=== PATIENT | female | born 1960 | race African-American/Black ===

== ENCOUNTER 2018-11-21 12:24 | Emergency (ER) | payer OTHER, SELFPAY ==
[2018-11-21] MEDS ORDERED: Acetaminophen 500 MG TAB ONE (12:47)
== END 2018-11-21 13:05 | disposition home or self-care (01) ==
LOC: BURERS 12:24
DX: K02.9 Dental caries, unspecified (principal); I10 Essential (primary) hypertension; F32.9 Major depressive disorder, single episode, unspecified; F17.220 Nicotine dependence, chewing tobacco, uncomplicated
CPT/HCPCS: 99282

== ENCOUNTER 2018-12-22 10:59 | Outpatient (CLI) | payer OTHER ==
--- NOTE | 2018-12-22 20:49 | RAD ---
LUMBAR SPINE THREE VIEWS: 12/22/18 No fracture, dislocation, or disc space narrowing was seen. Very minimal anterior osteophytes are see n around L3-L4. Minimal anterolisthesis of L4 on L% is probably secondary to mild facet arthritis. Ca lcification is noted in the aorta. The SI joints are symmetrical. IMPRESSION: Minor arthritic changes but no significant findings otherwise. POS: HOME
== END 2018-12-22 11:00 | disposition home or self-care (01) ==
LOC: BURRAD 10:59
PROVIDERS: ATTEND Nurse Practitioner Family
DX: M47.26 Other spondylosis with radiculopathy, lumbar region (principal)
CPT/HCPCS: 72100

== ENCOUNTER 2020-03-08 10:09 | Emergency (ER) | payer OTHER ==
[2020-03-08] MEDS ORDERED: Ketorolac Tromethamine 30 MG/ML VIAL ONE (10:50)
[2020-03-08] MEDS ORDERED: Sterile Water 10 ML ONE (10:50)
[2020-03-08] MEDS ORDERED: cefTRIAXone\\ROCEPHIN 1 GM VIAL ONE (10:50)
== END 2020-03-08 11:15 | disposition home or self-care (01) ==
LOC: BURERS 10:09
DX: K02.9 Dental caries, unspecified (principal); I10 Essential (primary) hypertension; E78.00 Pure hypercholesterolemia, unspecified; E10.9 Type 1 diabetes mellitus without complications; F17.220 Nicotine dependence, chewing tobacco, uncomplicated; Z79.899 Other long term (current) drug therapy
CPT/HCPCS: 96372; 99283; J0696; J1885

== ENCOUNTER 2022-01-15 10:54 | Outpatient (CLI) | payer OTHER | END 2022-01-15 10:55 | disposition home or self-care (01) | LOC: BURRAD 10:54 | PROVIDERS: ATTEND Family Medicine | DX: M25.512 Pain in left shoulder (principal) ==